=== PATIENT | female | born 1990 | race Caucasian/White ===

== ENCOUNTER 2023-10-17 19:21 | Emergency (ER) | payer SELFPAY ==
[~2023-10-17] VITALS: Ht 175.3 cm; Wt 75.3 kg
[2023-10-17 21:24] VITALS: TEMP 98.2
[2023-10-17 22:00] VITALS: BP 124/86; O2SAT 99
== END 2023-10-17 22:00 | disposition home or self-care (01) ==
LOC: ER 19:26
DX: S90.112A Contusion of left great toe without damage to nail, initial encounter (principal); S90.122A Contusion of left lesser toe(s) without damage to nail, initial encounter; V48.2XXA Person on outside of car injured in noncollision transport accident in nontraffic accident, initial encounter; Y93.89 Activity, other specified; Y92.89 Other specified places as the place of occurrence of the external cause; Y99.8 Other external cause status
CPT/HCPCS: 73630-TC